=== PATIENT | male | born 2005 | race Caucasian/White ===

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

== ENCOUNTER 2023-05-21 14:37 | Emergency (ER) | payer OTHER, SELFPAY ==
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
[2023-05-21 14:52] VITALS: BP 147/86; PULSE 115; O2SAT 98
[2023-05-21 14:58] VITALS: BP 155/74; PULSE 113; RESP 18; TEMP 37.2; O2SAT 94; BMI 28.8
[2023-05-21 15:44] VITALS: BP 129/79; PULSE 106; RESP 16; TEMP 36.8; O2SAT 98
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
[2023-05-21] MEDS: Acetaminophen 325 MG TABLET 975 MG PO (16:20)
--- NOTE | 2023-05-21 17:45 | PC.NURSE ---
patients mom came out of the room verbally upset that patient had not had CT scan. informed patients mother and patient that CT scan will be coming around shortly to take his xray.
--- NOTE | 2023-05-21 18:33 | PC.NURSE ---
patient currently awaiting CT and xray results.
== END 2023-05-21 19:52 | disposition home or self-care (01) ==
PROVIDERS: Emergency Provider Emergency Medicine
DX: S13.4XXA Sprain of ligaments of cervical spine, initial encounter (principal); S00.81XA Abrasion of other part of head, initial encounter; R51.9 Headache, unspecified; M54.2 Cervicalgia; M25.512 Pain in left shoulder; R07.89 Other chest pain; V43.52XA Car driver injured in collision with other type car in traffic accident, initial encounter; Y93.9 Activity, unspecified; Y92.410 Unspecified street and highway as the place of occurrence of the external cause; Y99.9 Unspecified external cause status; Z79.899 Other long term (current) drug therapy
CPT/HCPCS: 70450; 71045; 72125; 73000; 99284